=== PATIENT | female | born 1955 | race Caucasian/White ===

== ENCOUNTER 2023-10-28 17:20 | Emergency (ER) | payer MEDICARE, SELFPAY ==
[2023-10-28 17:21] VITALS: BP 157/92
--- NOTE | 2023-10-28 18:20 | ED.GENMED ---
History of Present Illness
<COREEN Villeda - Last Filed: 10/28/23 20:29>
General
Chief Complaint: Abdominal Symptoms
Source: patient
Exam Limitations: none
Time Seen by Provider: 10/28/23 18:00
History of Present Illness
History of Present Illness:
This is a 68 year old female that comes in with c/o blood in her stool. Stats that she was out with her sister last night and she was drinking. States that today she got up and did not feel well. States that she went to go down stairs and was
sweating. 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 Then around 3pm she eat a 1/2 of sandwich ad went to the [place]. States that it was s formed stool and there was bright red blood when she wiped. States that she had 2 more stools later and the
last was just blood. States that she has period like cramping in the lower abd. States that she was a little dizzy. Denies any fever, chills, chest pain, SOB, nausea, vomiting, headache, urinary burning.
Past History
<COREEN Villeda - Last Filed: 10/28/23 20:29>
Past History
ED Past Medical History: Hypercholesterolemia and Other (Hyperthyroid, )
ED Past Surgical History: None
Social History
Tobacco: Non-smoker
Alcohol: Daily (Vodka or Wine 1-2 glasses)
Drug: None
Personal:
Living: with family
Review of Systems
<COREEN Villeda - Last Filed: 10/28/23 20:29>
Review of Systems
All Other Systems: ROS reviewed and negative except as documented in HPI and ROS
Constitutional: Reports no symptoms; Denies fever or chills
Respiratory: Reports no symptoms; Denies cough or trouble breathing
Cardiac: Reports no symptoms; Denies chest pain
ABD/GI: Reports abdominal pain (Cramping) and bloody stools; Denies nausea or vomiting
: Reports no symptoms; Denies dysuria, frequency or urgency
Musculoskeletal: Reports no symptoms
Skin: Reports no symptoms
Neurological: Reports dizzy (Slight); Denies headache
Psychiatric: Reports no symptoms
Phy Exam
<COREEN Villeda - Last Filed: 10/28/23 20:29>
General Physical Exam
General Presentation: well appearing and no apparent distress
General age: appears stated age
General Skin: warm and dry
General Habitus: normal
General Mental: alert
General Hydration: appears well hydrated
ENT Exam
ENT Exam: TM's normal, pharynx normal and neck supple
Eye Exam
Eye Exam: EOMI
Cardiovascular Exam
Cardiovascular Exam: regular rate/rhythm, no edema, no murmur and normal peripheral pulses
Pulmonary Exam
Pulmonary Exam: lungs clear, no respiratory distress, no rales, no crackles, no rhonchi, no wheezing and no cough
Gastrointestinal Exam
Gastrointestinal Exam: normal bowel sounds, non tender, soft, no organomegaly, no pulsatile mass, non distended and other (rectal exam, Bloody hem positive, )
Musculoskeletal Exam
Musculoskeletal Exam: full ROM and no edema
Skin Exam
Skin Exam: normal color, warm/dry, no rash and no petechia
Psychiatric Exam
Psychiatric Exam: normal mood/affect
Course
<COREEN Villeda - Last Filed: 10/28/23 20:29>
Orders/Labs/Results
Orders:
Orders
10/28/23 18:20
Ketorolac [Toradol] 30 mg IV NOW STA
10/28/23 18:28
CT Abd/pelvis W Iv Cont Urgent
Comment:
Reason For Exam: bloody stool, Cramping
0.9% Sodium Chloride 1000 ml [Nss] 1,000 ml IV BOLUS
10/28/23 18:44
Type+Screen Urgent
Complete Blood Count/With Diff Urgent
Comprehensive Metabolic Panel Urgent
10/28/23 20:16
LevoFLOXacin [Levaquin] 500 mg PO NOW STA
MetroNIDAZOLE [Flagyl] 500 mg PO NOW STA
Abnormal Lab Results
10/28/23
18:44
WBC 20.9 H 10^3/uL
(4.8-10.8)
MCH 32.6 H pg
(27.0-31.0)
MPV 11.0 H fL
(7.4-10.4)
Abs Immat Gran (auto) 0.1 H 10^3/uL
(0-0.05)
Absolute Neuts (auto) 18.5 H 10^3/uL
(1.4-6.5)
Absolute Monos (auto) 0.9 H 10^3/uL
(0.1-0.6)
Neutrophils % 88.7 H %
(42.2-75.2)
Lymphocytes % 6.2 L %
(20.5-51.1)
Glucose 100 H mg/dl
(70-99)
10/28/23 18:44
10/28/23 18:44
Vital Signs
Initial and Last Documented VS:
Initial Vital Signs
Temp Pulse Resp BP Pulse Ox
98.9 F 79 18 157/92 98
10/28/23 17:21 10/28/23 17:21 10/28/23 17:21 10/28/23 17:21 10/28/23 17:21
Last Documented Vital Signs
Temp Pulse Resp BP Pulse Ox
98.9 F 79 18 157/92 98
10/28/23 17:21 10/28/23 17:21 10/28/23 17:21 10/28/23 17:21 10/28/23 17:21
<Richard Jean, DO - Last Filed: 10/28/23 18:28>
Orders/Labs/Results
Orders:
Orders
10/28/23 18:20
Ketorolac [Toradol] 30 mg IV NOW STA
10/28/23 18:28
CT Abd/pelvis W Iv Cont Urgent
Comment:
Reason For Exam: bloody stool, Cramping
0.9% Sodium Chloride 1000 ml [Nss] 1,000 ml IV BOLUS
10/28/23 18:44
Type+Screen Urgent
Complete Blood Count/With Diff Urgent
Comprehensive Metabolic Panel Urgent
10/28/23 20:16
LevoFLOXacin [Levaquin] 500 mg PO NOW STA
MetroNIDAZOLE [Flagyl] 500 mg PO NOW STA
Abnormal Lab Results
10/28/23
18:44
WBC 20.9 H 10^3/uL
(4.8-10.8)
MCH 32.6 H pg
(27.0-31.0)
MPV 11.0 H fL
(7.4-10.4)
Abs Immat Gran (auto) 0.1 H 10^3/uL
(0-0.05)
Absolute Neuts (auto) 18.5 H 10^3/uL
(1.4-6.5)
Absolute Monos (auto) 0.9 H 10^3/uL
(0.1-0.6)
Neutrophils % 88.7 H %
(42.2-75.2)
Lymphocytes % 6.2 L %
(20.5-51.1)
Glucose 100 H mg/dl
(70-99)
10/28/23 18:44
10/28/23 18:44
Vital Signs
Initial and Last Documented VS:
Initial Vital Signs
Temp Pulse Resp BP Pulse Ox
98.9 F 79 18 157/92 98
10/28/23 17:21 10/28/23 17:21 10/28/23 17:21 10/28/23 17:21 10/28/23 17:21
Last Documented Vital Signs
Temp Pulse Resp BP Pulse Ox
98.9 F 79 18 157/92 98
10/28/23 17:21 10/28/23 17:21 10/28/23 17:21 10/28/23 17:21 10/28/23 17:21
<COREEN Villeda - Last Filed: 10/28/23 20:29>
MDM/Problems Addressed
Differential Diagnosis Includes:
Rectal bleeding. Colitis, Diverticulitis
MDM/Problems Addressed:
This is a 68 year old female that comes in with c/o rectal bleeding. Patient went out last night and had a few drinks with her sister. Then today when she got up she did not feel well and broke out into a sweat. 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
then went to the this afternoon and she had blood when she wiped. States that she had 2 more stools later that were bloody with the last just being blood.
Will get labs IV fluids, medicate for pain and get CT scan.
Back into see patient. Explained that her CT does show Colitis. Will start patient on antibiotics. Offered patient admission but she feels good enough to go home. Will have patient follow up with the family doctor. Return with increased or changing
pain, fever, or any other concerns.
Chronic conditions affecting care:
NA
Acute Exacerbation and/or Progression of Chronic Illness:
NA
<COREEN Villeda - Last Filed: 10/28/23 20:29>
*Radiology
Radiology exam reviewed: radiology read reviewed (CT=Acute uncomplicated Colitis of the transverse and descending colon, likely of infectious/inflammatory etiology. )
*Pulse Oximetry
Patient hypoxic: no
*EKG
Interpreted by ED Provider?: NA
Rate: EKG- N/A
*Critical Care Note
Total Time (30-74mins, 75-104mins- exclusive of procedures): Not Applicable
ED Attending Note
<COREEN Villeda - Last Filed: 10/28/23 20:29>
-
Portions of this chart may have been created with voice recognition software.� Occasional wrong word or��sound alike� substitutions may have occurred due to the inherent limitations of voice recognition software.
<Richard Jean DO - Last Filed: 10/28/23 18:28>
ED Attending Note
Patient seen and examined by attending physician: Yes
I performed the substantive portion of visit, reviewed & personally made and approve the management plan that is documented in note by myself or NIESHA.: Yes
ED Attending Note:
68-year-old female presents with abdominal cramping and hematochezia. Also had some chills and low-grade fever. Patient with no recent travel [place] was [place] the [place] and her daughters recently had a procedure in the hospital. No recent
antibiotics. Abdomen soft and nontender on exam. Check CT, labs. If colitis consider antibiotics. Anticipate outpatient management if labs are reassuring
Discharge Plan
Departure
Patient Disposition: Home (Routine Discharge)
Date of Disposition: 10/28/23
Time of Disposition: 20:19
Patient with high blood pressure during this ER visit?: Yes
Condition: Good
Covid-19: Not Applicable
Discharge Problem:
Colitis
Instructions: Colitis (DC), BLOOD PRESSURE
Prescriptions:
New
levofloxacin 500 mg tablet
500 mg PO DAILY 9 Days Qty: 9 0RF
metronidazole 500 mg tablet
500 mg PO TID Qty: 29 0RF
Referrals:
Bibi Ochoa PA [Family Provider] - Call in 1-3 days for appt
Activity Restrictions/Additional Instructions:
As discussed, your blood work shows your white blood cell count is elevated. Otherwise your labs are normal. Your CT scan shows that you have colitis of transverse and descending colon. You have been started on antibiotics here and your
Prescriptions have been sent to your Pharmacy. You may get a metallic taste in your mouth from the Flagyl. Please increase your water intake to 8-8oz glasses daily. Follow up with the family doctor for recheck. If you have diarrhea please stay
away form Milk and milk products as this is hard for the gut to digest and will keep any diarrhea going. Simple food such as chicken, rice and potatoes are easily digested. IF YOU HAVE ANY FEVER, INCREASED OR CHANGING PAIN, OR YOU HAVE ANY OTHER
CONCERNS PLEASE RETURN TO THE EMERGENCY ROOM.
Discharge Date and Time
Print Language: BOLIVIAN
[2023-10-28 18:30] VITALS: BP 141/92
[2023-10-28] MEDS: TORADOL 30 MG IV (18:43)
[2023-10-28] MEDS: NSS 1000 IV (18:43)
[2023-10-28 19:01] LABS: % Basophils 0.2 % (0-2); % Immature Granulocytes 0.4 % (0-0.5); % Lymphocytes 6.2 % (20.5-51.1); % Monocytes 4.5 % (1.7-9.3); % Neutrophils 88.7 % (42.2-75.2); Absolute Immature Granulocytes 0.1 10^3/uL (0-0.05); Absolute Lymphocytes 1.3 10^3/uL (1.2-3.4); Absolute Monocytes 0.9 10^3/uL (0.1-0.6); Absolute Neutrophils 18.5 10^3/uL (1.4-6.5); Hematocrit 43.5 % (37.0-47.0); Hemoglobin 15.6 g/dL (12.0-16.0); Mean Corp Hgb Conc. 35.9 g/dL (33.0-37.0); Mean Corpuscular Hgb 32.6 pg (27.0-31.0); Mean Corpuscular Volume 90.8 fL (81.0-99.0); Nucleated Red Blood Cells % 0 %; Platelet Count 191 10^3/uL (130-400); Red Blood Cell Count 4.79 10^6/uL (4.20-5.40); Red Cell Dist. Width 12.1 % (11.5-14.5); White Blood Cell Count 20.9 10^3/uL (4.8-10.8)
[2023-10-28 19:19] LABS: ALT (SGPT) 26 U/L (0-35); AST (SGOT) 32 U/L (14-36); Albumin 4.6 g/dl (3.5-5.0); Alkaline Phosphatase 59 U/L (38-126); Blood Urea Nitrogen 13 mg/dl (7-17); Calcium 9.4 mg/dl (8.4-10.2); Carbon Dioxide 24 mmol/L (22-30); Chloride 105 mmol/L (98-107); Estimated Creatinine Clearance 65 ml/min; Glucose 100 mg/dl (70-99); Potassium 3.7 mmol/L (3.5-5.1); Sodium 140 mmol/L (135-145); Total Bilirubin 0.7 mg/dl (0.2-1.3); Total Protein 7.4 g/dl (6.3-8.2); eGFR > 60.00
[2023-10-28 20:36] VITALS: BP 113/79
[2023-10-28] MEDS: FLAGYL 500 MG PO (20:46)
[2023-10-28] MEDS: LEVAQUIN 500 MG PO (20:46)
[2023-10-28 21:34] VITALS: BP 141/92
== END 2023-10-28 21:00 | disposition home or self-care (01) ==
LOC: EMR 17:20
PROVIDERS: Clinical Nurse Specialist Family Health; EMERGENCY PHYSICIAN Student in an Organized Health Care Education/Training Program; FAMILY PHYSICIAN Physician Assistant
DX: K52.9 Noninfective gastroenteritis and colitis, unspecified (principal); R03.0 Elevated blood-pressure reading, without diagnosis of hypertension
CPT/HCPCS: 99285; 96374; 74177; 80053; 85025; 86850; 86900; 86901; Q9967

== ENCOUNTER 2024-03-04 06:23 | Day surgery (SDC) | payer MEDICARE, SELFPAY | END 2024-03-04 13:12 | disposition home or self-care (01) | LOC: GI 06:23 | PROVIDERS: ATTENDING PHYSICIAN Internal Medicine | PROC: 0DBH8ZX Excision of Cecum, Via Natural or Artificial Opening Endoscopic, Diagnostic (ICD-10-PCS; 2024-03-04) | PROC: 0DBL8ZX Excision of Transverse Colon, Via Natural or Artificial Opening Endoscopic, Diagnostic (ICD-10-PCS; 2024-03-04) | PROC: 0DBK8ZX Excision of Ascending Colon, Via Natural or Artificial Opening Endoscopic, Diagnostic (ICD-10-PCS; 2024-03-04) | DX: K55.21 Angiodysplasia of colon with hemorrhage (principal); D12.0 Benign neoplasm of cecum; D12.2 Benign neoplasm of ascending colon; D12.3 Benign neoplasm of transverse colon; K57.30 Diverticulosis of large intestine without perforation or abscess without bleeding | CPT/HCPCS: 45385; 45380; 88305 ==

== ENCOUNTER → 2024-07-15 15:00 | Outpatient (REF) | payer MEDICARE, SELFPAY | LOC: WDC 15:00 | PROVIDERS: ATTENDING PHYSICIAN Physician Assistant | DX: Z12.31 Encounter for screening mammogram for malignant neoplasm of breast (principal) | CPT/HCPCS: 77063; 77067 ==